=== PATIENT | female | born 1975 | race African-American/Black ===

== ENCOUNTER 2016-12-17 14:12 | Emergency (ER) | payer SELFPAY ==
[~2016-12-17] VITALS: Ht 170.2 cm; Wt 86.2 kg
[2016-12-17] MEDS ORDERED: predniSONE 20 MG TABLET PO ONE (14:45)
--- NOTE | 2016-12-17 14:47 | PHYS DOC ---
Past Medical History Past Medical History: Asthma Past Surgical History: Cholecystectomy, Other Additional Past Surgical Histo: R ROTATOR CUFF, HERNIA REMOVED Alcohol Use: None Drug Use: None Adult General Chief Complaint Chief Complaint: COUGH HPI HPI Patient is a 41 year old female with history of asthma who presents with bilateral ear pain, productive cough, sore throat, that began 2 days ago. Patient denies any fever. Patient has history of smoking. Review of Systems Review of Systems Constitutional: Denies fever or chills [] Eyes: Denies change in visual acuity, redness, or eye pain [] HENT: Bilateral ear pain sore throat [] Respiratory: cough Cardiovascular: No additional information not addressed in HPI [] GI: Denies abdominal pain, nausea, vomiting, bloody stools or diarrhea [] : Denies dysuria or hematuria [] Musculoskeletal: Denies back pain or joint pain [] Integument: Denies rash or skin lesions [] Neurologic: Denies headache, focal weakness or sensory changes [] Endocrine: Denies polyuria or polydipsia [] Current Medications Current Medications Current Medications Medications (Trade) Dose Ordered Sig/Compa Start Time Stop Time Status Last Admin Dose Admin Albuterol/ Ipratropium (Duoneb) 3 ml 1X ONCE 12/17/16 15:00 12/17/16 15:01 DC 12/17/16 15:02 3 ML Prednisone (Prednisone) 60 mg 1X ONCE 12/17/16 14:45 12/17/16 14:46 DC 12/17/16 14:42 60 MG Allergies Allergies Allergies Coded Allergies Type Severity Reaction Last Updated Verified No Known Drug Allergies 12/17/16 No Physical Exam Physical Exam Constitutional: Well developed, well nourished, no acute distress, non-toxic appearance. [] HENT: Normocephalic, atraumatic, bilateral external ears normal, oropharynx moist, no oral exudates, nose normal. [] Eyes: PERRLA, EOMI, conjunctiva normal, no discharge. [] Neck: Normal range of motion, no tenderness, supple, no stridor. [] Cardiovascular:Heart rate regular rhythm, no murmur [] Lungs & Thorax: Diminished breath sounds to posterior lung bases. Abdomen: Bowel sounds normal, soft, no tenderness, no masses, no pulsatile masses. [] Skin: Warm, dry, no erythema, no rash. [] Back: No tenderness, no CVA tenderness. [] Extremities: No tenderness, no cyanosis, no clubbing, ROM intact, no edema. [] Neurologic: Alert and oriented X 3, normal motor function, normal sensory function, no focal deficits noted. [] Psychologic: Affect normal, judgement normal, mood normal. [] Current Patient Data Vital Signs Vital Signs Date Time Temp Pulse Resp B/P (MAP) Pulse Ox O2 Delivery O2 Flow Rate FiO2 12/17/16 15:05 Room Air 12/17/16 14:29 98.1 98 22 98 98.1 Lab Values Laboratory Tests Test 12/17/16 14:34 Group A Streptococcus Rapid Negative (NEGATIVE) EKG EKG [] Radiology/Procedures Radiology/Procedures []PROCEDURE: CHEST PA & LATERAL Indication cough for 3 days. PA and lateral views of the chest were obtained. Comparison is made to an examination 07/02/2009. There are chronic changes. Blebs are seen in both upper lobes right larger than left. These blebs or bulla are more conspicuous than on the previous exam. An acute parenchymal infiltrate is not seen. The heart and pulmonary vessels are unremarkable. There is no pleural fluid. IMPRESSION: Chronic changes. No acute finding is seen in the chest DICTATED and SIGNED BY: ANMOL BARAJAS MD DATE: 12/17/16 1445 CC: ASH OAKLEY APRN; NO PCP; NON,STAFF ~ Course & Med Decision Making Course & Med Decision Making Pertinent Labs and Imaging studies reviewed. (See chart for details) This is a 41-year-old female patient with history of asthma who presents today with a productive cough, bilateral ear pain, and a cough for 3 days. Patient has history of smoking. She was advised to consider smoking cessation. Chest x- ray was negative for any acute findings. Negative rapid strep. Patient's symptoms are probably viral. Discharged with albuterol inhaler prednisone Tessalon Perles and lidocaine viscous. Follow-up with the PCP in 1-2 weeks. Dragon Disclaimer Dragon Disclaimer This electronic medical record was generated, in whole or in part, using a voice recognition dictation system. Departure Departure Impression: Primary Impression: Acute bronchitis Additional Impression: Smoking addiction Disposition: 01 HOME, SELF-CARE Condition: STABLE Referrals: NO PCP (PCP) Patient Instructions: Acute Bronchitis, Otalgia, Smoking Cessation, Viral and Bacterial Pharyngitis, [id number] Additional Instructions: You were seen with symptoms consistent with a viral bronchitis, viral pharyngitis, and ear pain. Take the prescribed medicines as ordered. Follow-up with your doctor in 1-2 weeks. Consider smoking cessation. Come back to the ED symptoms worsen. Scripts Lidocaine Hcl (LIDOCAINE HCL VISCOUS) 20 Mg/1 Ml Solution 5 ML PO TID, #100 ML Prov: ASH OAKLEY APRN 12/17/16 Prednisone (PREDNISONE) 50 Mg Tablet 1 TAB PO DAILY, #5 TAB Prov: ASH OAKLEY APRN 12/17/16 Benzonatate (TESSALON PERLE) 100 Mg Capsule 1 CAP PO TID, #30 CAP Prov: ASH OAKLEY APRN 12/17/16 Albuterol Sulfate (Proair Respiclick) 90 Mcg Aer.pow.ba 1 PUFF IH PRN Q6HRS Y for SHORTNESS OF BREATH, #1 INHALER Prov: ASH OAKLEY APRN 12/17/16 Problem Qualifiers Primary Impression: Acute bronchitis Bronchitis organism: unspecified organism Qualified Codes: J20.9 - Acute bronchitis, unspecified ASH OAKLEY APRN December 17, 2016 14:47
--- NOTE | 2016-12-17 14:50 | RAD ---
Indication cough for 3 days. PA and lateral views of the chest were obtained. Comparison is made to an examination 07/02/2009. There are chronic changes. Blebs are seen in both upper lobes right larger than left. These blebs or bulla are more conspicuous than on the previous exam. An acute parenchymal infiltrate is not seen. The heart and pulmonary vessels are unremarkable. There is no pleural fluid. IMPRESSION: Chronic changes. No acute finding is seen in the chest
[2016-12-17] MEDS ORDERED: IPRATRPIUM/ALBUTEROL 0.5/2.5MG 3 ML NEBU. NEB ONE (15:00)
[2016-12-17 15:13] LABS: NEGATIVE OBC STREP NEG
[2016-12-17 15:14] LABS: POSITIVE OBC STREP POS
[2016-12-17] MEDS ORDERED: LIDO20SO PO (15:38)
[2016-12-17] MEDS ORDERED: PROAIR RESPICL90 MCG IH (15:38)
[2016-12-17] MEDS ORDERED: PRED50TA PO (15:38)
[2016-12-17] MEDS ORDERED: BENZ100C PO (15:38)
[2016-12-17 15:55] VITALS: BP 126/71
== END 2016-12-17 15:55 | disposition home or self-care (01) ==
LOC: ER 14:12
DX: J20.9 Acute bronchitis, unspecified (principal); F17.200 Nicotine dependence, unspecified, uncomplicated; J45.909 Unspecified asthma, uncomplicated
CPT/HCPCS: 71020; 87070; 87880; 94250; 94640; 99285; J7512; J7620

== ENCOUNTER 2017-01-12 03:18 | Emergency (ER) | payer SELFPAY ==
[~2017-01-12] VITALS: Ht 170.2 cm; Wt 86.2 kg
[~2017-01-12 03:18] MED LIST: BENZ100C PO; LIDO20SO PO; PRED50TA PO; PROAIR RESPICL90 MCG IH
[2017-01-12 03:43] VITALS: BP 146/67
[2017-01-12] MEDS ORDERED: CYCL5TAB PO (03:55)
--- NOTE | 2017-01-12 03:56 | PHYS DOC ---
Past Medical History Past Medical History: Asthma Past Surgical History: Cholecystectomy, Other Additional Past Surgical Histo: R ROTATOR CUFF, HERNIA REMOVED Alcohol Use: None Drug Use: None Adult General Chief Complaint Chief Complaint: HIP PAIN HPI HPI Patient is a 41 year old female who presents with left lateral hip pain radiating through her left anterior thigh, achy and burning, constant, worse with movement. Able to ambulate. Drove here. No trauma, f/c, back pain, weakness, swelling, rash, discoloration. Review of Systems Review of Systems Constitutional: Denies fever or chills [] Eyes: Denies change in visual acuity, redness, or eye pain [] HENT: Denies nasal congestion or sore throat [] Respiratory: Denies cough or shortness of breath [] Cardiovascular: No additional information not addressed in HPI [] GI: Denies abdominal pain, nausea, vomiting, bloody stools or diarrhea [] : Denies dysuria or hematuria [] Musculoskeletal: Denies back pain [] Integument: Denies rash or skin lesions [] Neurologic: Denies headache, focal weakness or sensory changes [] Endocrine: Denies polyuria or polydipsia [] Current Medications Current Medications Current Medications Medications (Trade) Dose Ordered Sig/Compa Start Time Stop Time Status Last Admin Dose Admin Dexamethasone (Decadron) 8 mg 1X ONCE 01/12/17 04:00 01/12/17 04:01 DC 01/12/17 04:25 8 MG Ibuprofen (Motrin) 400 mg 1X ONCE 01/12/17 04:00 01/12/17 04:01 DC 01/12/17 04:26 400 MG Allergies Allergies Allergies Coded Allergies Type Severity Reaction Last Updated Verified No Known Drug Allergies 12/17/16 No Physical Exam Physical Exam Constitutional: Well developed, well nourished, no acute distress, non-toxic appearance. [] HENT: Normocephalic, atraumatic, bilateral external ears normal, oropharynx moist, nose normal. [] Eyes: PERRLA, EOMI. [] Neck: Normal range of motion, supple. [] Cardiovascular:Heart rate regular rhythm [] Lungs & Thorax: Bilateral breath sounds clear to auscultation [] Abdomen: Bowel sounds normal, soft, no tenderness. [] Skin: Warm, dry, no erythema, no rash. [] Back: No tenderness, no CVA tenderness. [] Extremities: LLE with no obvious deformity or discoloration; has tenderness to lateral aspect of thigh and greater trochanter with no visual or palpable abnormality; Able to flex/ex/IR/ER hip, knee full rom, ankle df/pf, toes df/pf; No obvious knee joint laxity with stressing; SILT peguero/sa/sp/dp/tib distributions ; good dp and pt pulses equal bilaterally Neurologic: Alert and oriented X 3, normal motor function, normal sensory function, no focal deficits noted. [] Psychologic: Affect normal, judgement normal, mood normal. [] Current Patient Data Vital Signs Vital Signs Date Time Temp Pulse Resp B/P (MAP) Pulse Ox O2 Delivery O2 Flow Rate FiO2 01/12/17 03:43 97.9 93 16 146/67 (93) 100 Room Air 97.9 Course & Med Decision Making Course & Med Decision Making Pertinent Labs and Imaging studies reviewed. (See chart for details) Discussed supportive care for MSK pain, bursitis, meralgia paresthetica, or preherpetic pain vs other. Return precautions given. She understands and agrees with plan. Dragon Disclaimer Dragon Disclaimer This electronic medical record was generated, in whole or in part, using a voice recognition dictation system. Departure Departure Impression: Primary Impression: Left hip pain Disposition: 01 HOME, SELF-CARE Condition: STABLE Referrals: NO PCP (PCP) Patient Instructions: Musculoskeletal Pain Additional Instructions: Take Tylenol or ibuprofen as needed for moderate pain. Take cyclobenzaprine as needed for severe pain. Do not drink, drive or operate heavy machinery after taking cyclobenzaprine as it may make you sleepy. Follow-up with your primary care doctor. Return for any concerns. Scripts Cyclobenzaprine Hcl (CYCLOBENZAPRINE HCL) 5 Mg Tablet 1 TAB PO TID Y for PAIN, #8 TAB Prov: Corrina SUAREZ MD 01/12/17 Corrina SUAREZ MD Jan 12, 2017 03:56
[2017-01-12] MEDS ORDERED: IBUPROFEN 400 MG TABLET. PO ONE (04:00)
[2017-01-12] MEDS ORDERED: DEXAMETHASONE 4 MG TABLET PO ONE (04:00)
== END 2017-01-12 04:30 | disposition home or self-care (01) ==
LOC: ER 03:18
DX: M25.552 Pain in left hip (principal); J45.909 Unspecified asthma, uncomplicated; Z90.49 Acquired absence of other specified parts of digestive tract
CPT/HCPCS: 99284; J8540

== ENCOUNTER 2021-12-14 21:38 | Emergency (ER) | payer SELFPAY ==
[~2021-12-14] VITALS: Ht 177.8 cm; Wt 75.0 kg
[~2021-12-14 21:38] MED LIST changes: +CYCL5TAB PO
[2021-12-14] MEDS ORDERED: MORPHINE SULFATE 4 MG/ML INJ. IVP ONE (22:15)
[2021-12-14] MEDS ORDERED: IV RINGERS,LACTATED 1000ML 1,000 ML IV SCH (22:15)
[2021-12-14] MEDS ORDERED: ONDANSETRON PF 4 MG/2 ML VIAL. IVP ONE (22:15)
[2021-12-14 22:28] LABS: BASO # 0.1 x10^3/uL (0.0-0.2); BASO % 1 % (0-3); EOS % 0 % (0-3); HEMATOCRIT 23.3 % (36.0-47.0); HEMOGLOBIN 7.6 g/dL (12.0-15.5); LYMPH # 0.8 x10^3/uL (1.0-4.8); LYMPH % 7 % (24-48); MEAN CORPUSCULAR HEMOGLOBIN 27 pg (25-35); MEAN CORPUSCULAR HGB CONC 33 g/dL (31-37); MEAN CORPUSCULAR VOLUME 83 fL (79-100); MONO # 0.5 x10^3/uL (0.0-1.1); MONO % 4 % (0-9); NEUT # 11.3 x10^3/uL (1.8-7.7); NEUT % 89 % (31-73); PLATELET COUNT 518 x10^3/uL (140-400); RED BLOOD COUNT 2.79 x10^6/uL (3.50-5.40); RED CELL DISTRIBUTION WIDTH 17.2 % (11.5-14.5); WHITE BLOOD COUNT 12.8 x10^3/uL (4.0-11.0)
[2021-12-14 22:33] LABS: U PREG PATIENT NEGATIVE (NEG)
[2021-12-14 22:41] LABS: CALCIUM 9.6 mg/dL (8.5-10.1); CREATININE 0.7 mg/dL (0.6-1.0); POTASSIUM 3.7 mmol/L (3.5-5.1)
[2021-12-14 22:47] LABS: BACTERIA,URINE MODERATE /HPF (0-FEW)
[2021-12-14 22:50] LABS: ALBUMIN 2.2 g/dL (3.4-5.0); ALBUMIN/GLOBULIN RATIO 0.3 (1.0-1.7); TOTAL BILIRUBIN 0.4 mg/dL (0.2-1.0); TOTAL PROTEIN 8.8 g/dL (6.4-8.2)
--- NOTE | 2021-12-14 23:01 | RAD ---
EXAMINATION: CT ABDOMEN+PELVIS WO CLINICAL HISTORY: Flank pain. TECHNIQUE: Imaging of the abdomen and pelvis was performed without intravenous contrast using standar d technique, scanning from just above the dome of the diaphragm to the symphysis pubis. Unenhanced i maging is limited for the evaluation of some intra-abdominal and pelvic pathology. CT Dose Reduction Employed: One or more of the following individualized dose reduction techniques wer e utilized for this examination: 1. Automated exposure control 2. Adjustment of the mA and/or kV ac cording to patient size 3. Use of iterative reconstruction technique. COMPARISON: None FINDINGS: Minimal bibasilar subsegmental atelectasis and/or scarring. Left basilar old calcified granuloma. Bilateral adrenal masses measuring up to approximately 7.2 x 4.9 x 7.7 cm (AP x TRV x CC) on the righ t and 6.2 x 4.2 x 5.3 cm on the left with mean attenuation approximately 40-45 HU. Cholecystectomy. Liver, pancreas, spleen, and kidneys unremarkable. Nondistended urinary bladder suboptimally evaluated. Uterus and ovaries unremarkable on limited evalu ation. No dilated bowel. Small prominent air-filled appendix with no periappendiceal inflammation, likely wi thin normal limits for the patient. Mild arterial atherosclerotic calcification without aneurysm. No lymphadenopathy. Multilevel thoracolumbar degenerative changes. IMPRESSION: Bilateral adrenal masses measuring up to 7.7 cm on the right and 6.2 cm on the left, incompletely ilya luated. These may represent adrenal hematomas, but metastatic disease is not excluded. Recommend furt her evaluation with nonemergent adrenal protocol CT/MRI abdomen with and without intravenous contrast . Electronically signed by: Cem Chowdary DO (12/14/2021 10:58 PM) JOAN
[2021-12-15] MEDS ORDERED: IOHEXOL 350 MG/ML 100 ML VIAL. IV ONE (00:30)
[2021-12-15] MEDS ORDERED: CONTRAST GIVEN. MC PRN (00:45)
[2021-12-15] MEDS ORDERED: MORPHINE SULFATE 4 MG/ML INJ. IVP ONE (01:15)
--- NOTE | 2021-12-15 01:28 | RAD ---
CTA Chest with contrast: Clinical History: Back pain and tachycardia . Axial helical images of the chest were obtained after the administration of 100 cc of IV 2350 and sherrie ed appropriately for a pulmonary arterial study. Conventional axial reconstruction was performed in addition to coronal, sagittal and bilateral oblique MIP (maximum intensity projection). This study w as ordered to detect possible pulmonary embolism. FINDINGS: There are no filling defects to suggest pulmonary embolism. There is a lobulated mass in the right upper lobe abutting the pleura laterally and abutting the yvonne r fissure that measures 7.0 x 5.0 cm. There is a moderately large lymph node in the right hilum. There is an adrenal mass on the left that measures 4.7 x 5.9 cm. There is a retroperitoneal mass on t he right not well included on this exam. The thoracic aorta appears normal. Impression: 1. No evidence of pulmonary embolism. 2. Right upper lobe mass and right hilar lymphadenopathy. This could be primary or metastatic lung c ancer. 3. Left adrenal mass likely metastatic cancer. 4. Right sided retroperitoneal mass in the abdomen could be arising from the adrenal or kidney. PQRS Compliance Statement: One or more of the following individualized dose reduction techniques were utilized for this examinat ion: 1. Automated exposure control 2. Adjustment of the mA and/or kV according to patient size 3. Use of iterative reconstruction technique Electronically signed by: Malvin Stout III, MD (12/15/2021 1:26 AM) [facility]
--- NOTE | 2021-12-15 01:59 | PHYS DOC ---
Past Medical History Past Medical History: Asthma Additional Past Medical Histor: CANCER (MAYBE ADRENAL) Past Surgical History: Other Additional Past Surgical Histo: ADRENAL BIOPSY Smoking Status: Never Smoker Alcohol Use: None Drug Use: None General Adult EDM: Chief Complaint: FLANK PAIN HPI: HPI: Patient is a 46 year old female with a history of lung cancer who presents to the emergency department today with complaints of left upper back pain. Patient states she had left upper back pain today. She states it is about 8 out of 10. There are no palliative or provocative factors to her pain. The pain does not radiate. She denies any associated shortness of breath, nausea, vomiting or diaphoresis. She denies any chest pain. The pain has been constant. She is taking Lortab at home without relief. Review of Systems: Review of Systems: Constitutional: Denies fever or chills. [] Eyes: Denies change in visual acuity. [] HENT: Denies nasal congestion or sore throat. [] Respiratory: Denies cough or shortness of breath. [] Cardiovascular: Denies chest pain or edema. [] GI: Denies abdominal pain, nausea, vomiting, bloody stools or diarrhea. [] : Denies dysuria. [] Musculoskeletal: Denies joint pain. [] Integument: Denies rash. [] Neurologic: Denies headache, focal weakness or sensory changes. [] Endocrine: Denies polyuria or polydipsia. [] Lymphatic: Denies swollen glands. [] Psychiatric: Denies depression or anxiety. [] Heart Score: C/O Chest Pain: No Family History: Family History: Noncontributory Current Medications: Current Medications Medications (Trade) Dose Ordered Sig/Compa Start Time Stop Time Status Last Admin Dose Admin Info (CONTRAST GIVEN -- Rx MONITORING) 1 each PRN DAILY PRN 12/15/21 00:45 12/17/21 00:44 Iohexol (Omnipaque 350 Mg/ml) 100 ml 1X ONCE 12/15/21 00:30 12/15/21 00:33 DC 12/15/21 00:30 100 ML Morphine Sulfate (Morphine Sulfate) 4 mg 1X ONCE 12/15/21 01:15 12/15/21 01:16 DC 12/15/21 01:16 4 MG Ondansetron HCl (Zofran) 4 mg 1X ONCE 12/14/21 22:15 12/14/21 22:16 DC 12/14/21 22:39 4 MG Ringer's Solution 1,000 ml @ 1,000 mls/hr Q1H 12/14/21 22:15 12/14/21 23:14 DC 12/14/21 22:41 1,000 MLS/HR Allergies: Allergies: Allergies Coded Allergies Type Severity Reaction Last Updated Verified No Known Drug Allergies 12/17/16 No Physical Exam: PE: Constitutional: Well developed, well nourished, no acute distress, non-toxic appearance. [] HENT: Normocephalic, atraumatic, bilateral external ears normal, oropharynx moist, no oral exudates, nose normal. [] Eyes: PERRLA, EOMI, conjunctiva normal, no discharge. [] Neck: Normal range of motion, no tenderness, supple, no stridor. [] Cardiovascular:Heart rate regular rhythm, no murmur [] Lungs & Thorax: Bilateral breath sounds clear to auscultation [] Abdomen: Bowel sounds normal, soft, no tenderness, no masses, no pulsatile masses. [] Skin: Warm, dry, no erythema, no rash. [] Back: No tenderness, no CVA tenderness. [] Extremities: No tenderness, no cyanosis, no clubbing, ROM intact, no edema. [] Neurologic: Alert and oriented X 3, normal motor function, normal sensory function, no focal deficits noted. [] Psychologic: Affect normal, judgement normal, mood normal. [] Current Patient Data: Labs: Laboratory Tests Test 12/14/21 21:59 12/14/21 22:01 12/14/21 22:05 Urine Collection Type Unknown Urine Color (Auto) Light orange Urine Turbidity Hazy Urine pH (Auto) 6.0 (<5.0-8.0) Urine Specific [place] 1.016 (1.000-1.030) Urine Protein (Auto) 50 mg/dL (Negative) Urine Glucose (Auto)(UA) Negative mg/dL (Negative) Urine Ketones (Auto) Negative mg/dL (Negative) Urine Blood (Auto) Large (Negative) Urine Nitrite Negative (Negative) Urine Bilirubin (Auto) Negative (Negative) Urine Urobilinogen (Auto) Normal mg/dL (Normal) Urine Leukocyte Esterase (Auto) Negative (Negative) Urine RBC 6-10 /HPF (0-2) Urine WBC 1-4 /HPF (0-4) Urine Squamous Epithelial Cells Mod /LPF Urine Bacteria Moderate /HPF (0-FEW) Urine Mucus Mod /LPF Urine Test Negative (NEG) POC Urine HCG, Qualitative Hcg negative (Negative) White Blood Count 12.8 x10^3/uL (4.0-11.0) H Red Blood Count 2.79 x10^6/uL (3.50-5.40) L Hemoglobin 7.6 g/dL (12.0-15.5) L Hematocrit 23.3 % (36.0-47.0) L Mean Corpuscular Volume 83 fL (79-100) Mean Corpuscular Hemoglobin 27 pg (25-35) Mean Corpuscular Hemoglobin Concent 33 g/dL (31-37) Red Cell Distribution Width 17.2 % (11.5-14.5) H Platelet Count 518 x10^3/uL (140-400) H Neutrophils (%) (Auto) 89 % (31-73) H Lymphocytes (%) (Auto) 7 % (24-48) L Monocytes (%) (Auto) 4 % (0-9) Eosinophils (%) (Auto) 0 % (0-3) Basophils (%) (Auto) 1 % (0-3) Neutrophils # (Auto) 11.3 x10^3/uL (1.8-7.7) H Lymphocytes # (Auto) 0.8 x10^3/uL (1.0-4.8) L Monocytes # (Auto) 0.5 x10^3/uL (0.0-1.1) Eosinophils # (Auto) 0.0 x10^3/uL (0.0-0.7) Basophils # (Auto) 0.1 x10^3/uL (0.0-0.2) Platelet Estimate Pending Sodium Level 132 mmol/L (136-145) L Potassium Level 3.7 mmol/L (3.5-5.1) Chloride Level 97 mmol/L (98-107) L Carbon Dioxide Level 24 mmol/L (21-32) Anion Gap 11 (6-14) Blood Urea Nitrogen 5 mg/dL (7-20) L Creatinine 0.7 mg/dL (0.6-1.0) Estimated GFR (Cockcroft-Gault) 109.0 BUN/Creatinine Ratio 7 (6-20) Glucose Level 120 mg/dL (70-99) H Calcium Level 9.6 mg/dL (8.5-10.1) Total Bilirubin 0.4 mg/dL (0.2-1.0) Aspartate Amino Transferase (AST) 19 U/L (15-37) Alanine Aminotransferase (ALT) 16 U/L (14-59) Alkaline Phosphatase 43 U/L (46-116) L Total Protein 8.8 g/dL (6.4-8.2) H Albumin 2.2 g/dL (3.4-5.0) L Albumin/Globulin Ratio 0.3 (1.0-1.7) L Lipase 71 U/L (73-393) L Laboratory Tests 12/14/21 22:05 Laboratory Tests 12/14/21 22:05 Vital Signs: Vital Signs Date Time Temp Pulse Resp B/P (MAP) Pulse Ox O2 Delivery O2 Flow Rate FiO2 12/14/21 22:40 16 100 12/14/21 21:55 98.9 125 124/78 (93) Room Air 98.9 EKG: EKG: EKG shows normal sinus rhythm with normal rate. Intervals and axis are normal. EKG read interpreted by myself Radiology/Procedures: Radiology/Procedures: EXAMINATION: CT ABDOMEN+PELVIS WO CLINICAL HISTORY: Flank pain. TECHNIQUE: Imaging of the abdomen and pelvis was performed without intravenous contrast using standard technique, scanning from just above the dome of the diaphragm to the symphysis pubis. Unenhanced imaging is limited for the evaluation of some intra-abdominal and pelvic pathology. CT Dose Reduction Employed: One or more of the following individualized dose reduction techniques were utilized for this examination: 1. Automated exposure control 2. Adjustment of the mA and/or kV according to patient size 3. Use of iterative reconstruction technique. COMPARISON: None FINDINGS: Minimal bibasilar subsegmental atelectasis and/or scarring. Left basilar old calcified granuloma. Bilateral adrenal masses measuring up to approximately 7.2 x 4.9 x 7.7 cm (AP x TRV x CC) on the right and 6.2 x 4.2 x 5.3 cm on the left with mean attenuation approximately 40-45 HU. Cholecystectomy. Liver, pancreas, spleen, and kidneys unremarkable. Nondistended urinary bladder suboptimally evaluated. Uterus and ovaries unremarkable on limited evaluation. No dilated bowel. Small prominent air-filled appendix with no periappendiceal inflammation, likely within normal limits for the patient. Mild arterial atherosclerotic calcification without aneurysm. No lymphadenopathy. Multilevel thoracolumbar degenerative changes. IMPRESSION: Bilateral adrenal masses measuring up to 7.7 cm on the right and 6.2 cm on the left, incompletely evaluated. These may represent adrenal hematomas, but metastatic disease is not excluded. Recommend further evaluation with nonemergent adrenal protocol CT/MRI abdomen with and without intravenous contra st. Electronically signed by: Cem Chowdary DO (12/14/2021 10:58 PM) [facility] Impression: Lung mass. Bilateral adrenal masses Course & Med Decision Making: Course & Med Decision Making Patient remained hemodynamically stable in the emergency department. She was evaluated at the bedside with a physical exam. Basic laboratory unremarkable. Imaging reveals bilateral adrenal masses and a CT of the chest shows no evidence of PE. CT was obtained given the patient's persistent tachycardia. I does show a left a left lung mass which is known to the patient. Patient pain has improved. Will have her follow-up with her PCP. Milagros Disclaimer: Milagros Disclaimer: This electronic medical record was generated, in whole or in part, using a voice recognition dictation system. Departure Departure Impression: Primary Impression: Lung mass Additional Impression: Adrenal mass Disposition: HOME / SELF CARE / HOMELESS Condition: IMPROVED Referrals: NO PCP (PCP) Patient Instructions: Lung Cancer ROMY EUBANKS MD December 15, 2021 01:59
[2021-12-15 02:50] VITALS: BP 112/68
[2021-12-15] MEDS ORDERED: HYDROcodone/APAP 10/325 1 TAB TABLET PO ONE (03:00)
[2021-12-15 03:59] LABS: % BANDS 1 % (0-9); % LYMPHS 9 % (24-48); % SEGS 90 % (35-66); PLT ESTIMATE INCREASED (ADEQUATE)
[2021-12-15 04:00] LABS: ANISOCYTOSIS SLIGHT
--- NOTE | 2021-12-18 08:31 | EKG ---
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
== END 2021-12-15 03:00 | disposition home or self-care (01) ==
LOC: ER 21:38
DX: R91.8 Other nonspecific abnormal finding of lung field (principal); E27.8 Other specified disorders of adrenal gland; M54.6 Pain in thoracic spine; J45.909 Unspecified asthma, uncomplicated; Z85.118 Personal history of other malignant neoplasm of bronchus and lung
CPT/HCPCS: 36415; 71275; 74176; 80053; 81001; 81025; 83690; 85007; 85025; 87086; 93005; 96361; 96374; 96375; 96376; 99285; J2270; J2405; J7120; Q9967